=== PATIENT | male | born 1990 | race African-American/Black ===

== ENCOUNTER 2017-08-06 16:43 | Emergency (ER) | payer OTHER ==
--- OUTSIDE RECORDS SUMMARY | 2017-08-06 16:49 | XMS REPORT ---
:1990 [facility] [address] [place] [address] Care Team Providers Name Role Phone UNKNOWN, REFFERING Primary Care Provider Unavailable Problems This patient has no known problems. Allergies, Adverse Reactions, Alerts This patient has no known allergies or adverse reactions. Medications This patient has no known medications. Encounters Start End Encounter Admission Attending Care Care Encounter Date/Time Date/Time Type Type Clinicians Facility Department ID 2015-06-01 Inpatient C [facility] [id number] 17:14:00
[2017-08-06 17:50] LABS: Absolute Lymphocytes (CBC) 1.5 K/uL (0.7-4.9); Absolute Monocytes 0.3 K/uL (0.1-1.3); Absolute Neutrophil 2.8 K/uL (1.8-8.0); Basophils % 0.7 % (0-1.3); Eosinophils % 0.8 % (0-4.4); Hematocrit 43.8 % (39.6-49.0); Lymphocytes % 33.2 % (15.3-44.8); MCH 26.6 pg (27.0-35.0); MPV 9.6 fL (7.6-11.3); Monocytes % 6.2 % (3.3-12.3); RBC Red Blood Cell Count 5.21 M/uL (4.33-5.43)
[2017-08-06 17:56] LABS: Protime INR 1.1
[2017-08-06 18:06] LABS: ALT/SGPT 18 U/L (12-78); AST/SGOT 16 U/L (15-37); Albumin 4.9 g/dL (3.4-5.0); Alkaline Phosphatase 46 U/L (45-117); BUN Blood Urea Nitrogen 13 mg/dL (7-18); Bicarbonate 29 mmol/L (21-32); Bilirubin Direct 0.1 mg/dL (0-0.2); Bilirubin Total 0.6 mg/dL (0.2-1.0); CKMB Creatine Kinase MB 1.6 ng/mL (0.3-3.6); Creatine Phosphokinase 148 U/L (39-308); Glucose Level 84 mg/dL (74-106); Lipase 65 U/L (73-393); Magnesium 2.4 mg/dL (1.8-2.4); NT PRO-BNP 16 pg/mL (<125); Protein, Total 8.6 g/dL (6.4-8.2); Sodium Level 136 mmol/L (136-145)
--- NOTE | 2017-08-06 18:10 | RAD REPORT ---
EXAM DESCRIPTION: Gamal Single View08/06/2017 6:02 pm CLINICAL HISTORY: Abdominal pain COMPARISON: 2010 FINDINGS: The entire lateral costophrenic sulci are not included in the field of view and are not ev aluated. The visualized lungs appear clear of acute infiltrate. The heart is normal size IMPRESSION: No acute abnormalities displayed
--- NOTE | 2017-08-06 18:49 | ER ---
Nurse's Notes [facility] Name: Neri Connelly Age: 26 yrs Sex: Male : 1990 Arrival Date: 08/06/2017 Time: 16:48 Bed 5 Private MD: Diagnosis: Weakness Presentation: 08/06 16:55 Presenting complaint: Patient states: Report low HGB reported by [facility] and instructed to come to ER. Transition of care: patient was not received from another setting of care. Onset of symptoms was July 30, 2017. Risk Assessment: Do you want to hurt yourself or someone else? Patient reports no desire to harm self or others. Initial Sepsis Screen: Does the patient meet any 2 criteria? No. Patient's initial sepsis screen is negative. Does the patient have a suspected source of infection? No. Patient's initial sepsis screen is negative. Care prior to arrival: None. 16:55 Method Of Arrival: Ambulatory 16:55 Acuity: RICHELLE 3 Triage Assessment: 16:57 General: Appears in no apparent distress. comfortable, Behavior is calm, cooperative, aj appropriate for age. Pain: Denies pain. Neuro: Level of Consciousness is awake, alert, obeys commands, Oriented to person, place, time, situation, Appropriate for age. Respiratory: Airway is patent Respiratory effort is even, unlabored, Respiratory pattern is regular, symmetrical. GI: Reports anorexia. Derm: Skin is intact, is healthy with good turgor, Skin is pink, warm \T\ dry. normal. Historical: - Allergies: 16:57 No Known Allergies; aj - Home Meds: 16:57 Invega oral oral [Active]; aj - PMHx: 16:57 Schizophrenia; - PSHx: 16:57 None; aj - Immunization history:: Adult Immunizations up to date. - Social history:: Smoking status: Patient/guardian denies using tobacco. - Ebola Screening: : Patient negative for fever greater than or equal to 101.5 degrees Fahrenheit, and additional compatible Ebola Virus Disease symptoms Patient denies exposure to infectious person Patient denies travel to an Ebola-affected area in the 21 days before illness onset No symptoms or risks identified at this time. Screenin:08 Abuse screen: Denies threats or abuse. Denies injuries from another. Nutritional aa5 screening: No deficits noted. Tuberculosis screening: No symptoms or risk factors identified. Fall Risk IV access (20 points). Assessment: 19:08 General: Appears in no apparent distress. comfortable, Behavior is calm, cooperative, aa5 appropriate for age. Pain: Denies pain. Neuro: Level of Consciousness is awake, alert, obeys commands, Oriented to person, place, time, situation. Cardiovascular: Reports chest pain. Respiratory: Airway is patent Trachea midline Respiratory effort is even, unlabored. GI: Abdomen is non-distended, Bowel sounds present X 4 quads. Abd is soft and non tender X 4 quads. : No signs and/or symptoms were reported regarding the genitourinary system. EENT: No signs and/or symptoms were reported regarding the EENT system. Derm: No signs and/or symptoms reported regarding the dermatologic system. Vital Signs: 16:57 BP 123 / 90; Pulse 86; Resp 20; Temp 98.2; Pulse Ox 99% on R/A; Weight 66.68 kg; Height aj 6 ft. 1 in. (185.42 cm); 19:06 BP 124 / 92; Pulse 60; Resp 17; Temp 98.2(O); Pulse Ox 100% on R/A; Pain 0/10; aa5 16:57 Body Mass Index 19.39 (66.68 kg, 185.42 cm) ED Course: 16:48 Patient arrived in ED. rg4 16:57 Triage completed. 16:57 Arm band placed on right wrist. Patient placed in an exam room. aj 17:00 Eric Avalos MD is Attending Physician. [facility] 17:02 Daya Johnson, RN is Primary Nurse. ph 18:00 XRAY Chest (1 view) In Process Unspecified. EDMS 18:01 EKG done, by field crop technical officer. reviewed by Eric Avalos MD. sm3 19:07 No provider procedures requiring assistance completed. IV 20 Gauge placed by previous aa5 shift removed from left a/c. IV discontinued, intact, bleeding controlled, No redness/swelling at site. Pressure dressing applied. 19:10 Patient has correct armband on for positive identification. Bed in low position. Call aa5 light in reach. Side rails up X 1. Adult w/ patient. Administered Medications: 19:11 Not Given ( Cancelled order): ProTONIX 40 mg IVP once aa5 19:11 Not Given ( Cancelled order): NS 0.9% 1000 ml IV at 125 ml/hr continuous aa5 Outcome: 18:48 Discharge ordered by . ignacio 19:09 Discharged to home ambulatory, with family. aa5 19:09 Condition: stable 19:09 Discharge instructions given to patient, family, Instructed on discharge instructions, follow up and referral plans. Demonstrated understanding of instructions, follow-up care. 19:12 Patient left the ED. aa5 Signatures: Dispatcher [employer] Nichol Ohara, RN Eric Jeong MD MD cha Calderon, Audri RN RN aa5 Daya Johnson RN RN Arnav, Amara 4 Geni Perez 3
--- NOTE | 2017-08-06 18:49 | EDPHYS ---
Physician Documentation [facility] Name: Neri Connelly Age: 26 yrs Sex: Male : 1990 Arrival Date: 08/06/2017 Time: 16:48 Bed 5 Private MD: ED Physician Eric Avalos HPI: 08/06 17:39 This 26 yrs old Black Male presents to ER via Ambulatory with complaints of Abnormal ignacio Lab Results, LOW BLOOD COUNT. 17:39 WEAK, and low blood count. Onset: The symptoms/episode began/occurred 3 day(s) ago. ignacio Severity of symptoms: At their worst the symptoms were mild in the emergency department the symptoms are unchanged. The patient has not experienced similar symptoms in the past. Historical: - Allergies: 16:57 No Known Allergies; aj - Home Meds: 16:57 Invega oral oral [Active]; aj - PMHx: 16:57 Schizophrenia; aj - PSHx: 16:57 None; aj - Immunization history:: Adult Immunizations up to date. - Social history:: Smoking status: Patient/guardian denies using tobacco. - Ebola Screening: : Patient negative for fever greater than or equal to 101.5 degrees Fahrenheit, and additional compatible Ebola Virus Disease symptoms Patient denies exposure to infectious person Patient denies travel to an Ebola-affected area in the 21 days before illness onset No symptoms or risks identified at this time. ROS: 17:41 Constitutional: Negative for fever, chills, and weight loss, Eyes: Negative for injury, ignacio pain, redness, and discharge, ENT: Negative for injury, pain, and discharge, Neck: Negative for injury, pain, and swelling, Cardiovascular: Negative for chest pain, palpitations, and edema, Respiratory: Negative for shortness of breath, cough, wheezing, and pleuritic chest pain, Abdomen/GI: Negative for abdominal pain, nausea, vomiting, diarrhea, and constipation, Back: Negative for injury and pain, : Negative for injury, bleeding, discharge, and swelling, MS/Extremity: Negative for injury and deformity, Skin: Negative for injury, rash, and discoloration, Neuro: Negative for headache, weakness, numbness, tingling, and seizure, Psych: Negative for depression, anxiety, suicide ideation, homicidal ideation, and hallucinations, Allergy/Immunology: Negative for hives, rash, and allergies, Endocrine: Negative for neck swelling, polydipsia, polyuria, polyphagia, and marked weight changes, Hematologic/Lymphatic: Negative for swollen nodes, abnormal bleeding, and unusual bruising. Exam: 17:42 Constitutional: This is a well developed, well nourished patient who is awake, alert, ignacio and in no acute distress. Head/Face: Normocephalic, atraumatic. Eyes: Pupils equal round and reactive to light, extra-ocular motions intact. Lids and lashes normal. Conjunctiva and sclera are non-icteric and not injected. Cornea within normal limits. Periorbital areas with no swelling, redness, or edema. ENT: Nares patent. No nasal discharge, no septal abnormalities noted. Tympanic membranes are normal and external auditory canals are clear. Oropharynx with no redness, swelling, or masses, exudates, or evidence of obstruction, uvula midline. Mucous membranes moist. Neck: Trachea midline, no thyromegaly or masses palpated, and no cervical lymphadenopathy. Supple, full range of motion without nuchal rigidity, or vertebral point tenderness. No Meningismus. Chest/axilla: Normal chest wall appearance and motion. Nontender with no deformity. No lesions are appreciated. Cardiovascular: Regular rate and rhythm with a normal S1 and S2. No gallops, murmurs, or rubs. Normal PMI, no JVD. No pulse deficits. Respiratory: Lungs have equal breath sounds bilaterally, clear to auscultation and percussion. No rales, rhonchi or wheezes noted. No increased work of breathing, no retractions or nasal flaring. Abdomen/GI: Soft, non-tender, with normal bowel sounds. No distension or tympany. No guarding or rebound. No evidence of tenderness throughout. Back: No spinal tenderness. No costovertebral tenderness. Full range of motion. Male : Normal genitalia with no discharge or lesions. Skin: Warm, dry with normal turgor. Normal color with no rashes, no lesions, and no evidence of cellulitis. MS/ Extremity: Pulses equal, no cyanosis. Neurovascular intact. Full, normal range of motion. Neuro: Awake and alert, GCS 15, oriented to person, place, time, and situation. Cranial nerves II-XII grossly intact. Motor strength 5/5 in all extremities. Sensory grossly intact. Cerebellar exam normal. Normal gait. Psych: Awake, alert, with orientation to person, place and time. Behavior, mood, and affect are within normal limits. Vital Signs: 16:57 BP 123 / 90; Pulse 86; Resp 20; Temp 98.2; Pulse Ox 99% on R/A; Weight 66.68 kg; Height aj 6 ft. 1 in. (185.42 cm); 19:06 BP 124 / 92; Pulse 60; Resp 17; Temp 98.2(O); Pulse Ox 100% on R/A; Pain 0/10; aa5 16:57 Body Mass Index 19.39 (66.68 kg, 185.42 cm) aj MDM: 17:00 Patient medically screened. [facility] 17:42 Data reviewed: vital signs, nurses notes, lab test result(s), EKG, radiologic studies, ignacio plain films. 08/06 17:02 Order name: Basic Metabolic Panel; Complete Time: 18:47 [facility] 08/06 17:02 Order name: CBC with Diff; Complete Time: 18:47 [facility] 08/06 17:02 Order name: Ckmb; Complete Time: 18:47 [facility] 08/06 17:02 Order name: CPK; Complete Time: 18:47 [facility] 08/06 17:02 Order name: LFT's; Complete Time: 18:47 [facility] 08/06 17:02 Order name: Magnesium; Complete Time: 18:47 [facility] 08/06 17:02 Order name: NT PRO-BNP; Complete Time: 18:47 [facility] 08/06 17:02 Order name: PT-INR; Complete Time: 18:47 [facility] 08/06 17:02 Order name: Ptt, Activated; Complete Time: 18:47 [facility] 08/06 17:02 Order name: Troponin (emerg Dept Use Only); Complete Time: 18:47 [facility] 08/06 17:02 Order name: XRAY Chest (1 view); Complete Time: 18:47 [facility] 08/06 17:02 Order name: Lipase; Complete Time: 18:47 [facility] 08/06 17:02 Order name: Type And Screen [facility] 08/06 17:02 Order name: EKG; Complete Time: 17:03 [facility] 08/06 17:02 Order name: Cardiac monitoring; Complete Time: 19:11 [facility] 08/06 17:02 Order name: EKG - Nurse/Tech; Complete Time: 19:11 [facility] 08/06 17:02 Order name: IV Saline Lock; Complete Time: 19:11 [facility] 08/06 17:02 Order name: Labs collected and sent; Complete Time: 19:11 [facility] 08/06 17:02 Order name: O2 Per Protocol; Complete Time: 19:11 [facility] 08/06 17:02 Order name: O2 Sat Monitoring; Complete Time: 19:11 [facility] Administered Medications: 19:11 Not Given ( Cancelled order): ProTONIX 40 mg IVP once aa5 19:11 Not Given ( Cancelled order): NS 0.9% 1000 ml IV at 125 ml/hr continuous aa5 Disposition: 08/06/17 18:48 Discharged to Home. Impression: Weakness. - Condition is Stable. - Discharge Instructions: Weakness, Weakness, [id number]. - Medication Reconciliation Form, Thank You Letter, Antibiotic Education, Prescription Opioid Use form. - Follow up: Private Physician; When: 2 - 3 days; Reason: Recheck today's complaints, Continuance of care, Re-evaluation by your physician. - Problem is new. - Symptoms have improved. Signatures: Dispatcher [employer] EDNichol Kirk, RN RN Eric Bell MD MD cha Calderon, Audri RN RN aa5 Corrections: (The following items were deleted from the chart) 19: 17:02 Urine Dipstick-Ancillary ordered. [facility] aa 19:12 18:48 08/06/2017 18:48 Discharged to Home. Impression: Weakness. Condition is Stable. aa5 Discharge Instructions: Weakness, Weakness, [id number]. Forms are Medication Reconciliation Form, Thank You Letter, Antibiotic Education, Prescription Opioid Use. Follow up: Private Physician; When: 2 - 3 days; Reason: Recheck today's complaints, Continuance of care, Re-evaluation by your physician. Problem is new. Symptoms have improved. [facility]
--- NOTE | 2017-08-06 23:12 | EKG ---
Test Date: 2017-08-06 Test Time: 17:15:45 Chair Mechanic: CAM MEASUREMENT RESULTS: Intervals: Rate: 56 WY: 136 QRSD: 92 QT: 424 QTc: 409 [place]: P: 72 WY: 136 QRS: 80 T: 53 INTERPRETIVE STATEMENTS: Sinus bradycardia Otherwise normal ECG Compared to ECG 01/11/2016 15:47:00 Sinus tachycardia no longer present Atrial abnormality no longer present Right-axis deviation no longer present Electronically Signed On 08-06-17 23:12:11 CDT by Jimbo Lemons
== END 2017-08-06 19:12 | disposition home or self-care (01) ==
LOC: ER 16:43
DX: R53.1 Weakness (principal)
CPT/HCPCS: 36415; 71045; 80048; 80076; 82550; 82553; 83690; 83735; 83880; 84484; 85025; 85610; 85730; 86850; 86900; 86901; 93005; 99283